=== PATIENT | female | born 1970 | race Two or more races ===

== ENCOUNTER 2022-05-30 11:52 | Emergency (ER) | payer MEDICAID ==
[~2022-05-30] VITALS: Ht 157.5 cm; Wt 81.6 kg
--- NOTE | 2022-05-30 12:11 | NUR ---
LEFT SHOULDER PAIN X 18, WORST FOR THE LAST 3 DAYS
[2022-05-30] MEDS ORDERED: HYDROCODONE/APAP 10/325MG TABLET ONE (12:34)
[2022-05-30] MEDS ORDERED: IBUPROFEN 600 MG TABLET ONE (12:34)
--- NOTE | 2022-05-30 12:40 | NUR ---
CHIEF [employer]ATEGY [employer]ICER AT BEDSIDE
[2022-05-30] MEDS: IBUPROFEN 600 MG TABLET PO ONE (12:46)
[2022-05-30] MEDS: HYDROCODONE/APAP 10/325MG TABLET PO ONE (12:46)
[2022-05-30] MEDS ORDERED: TRAM50TA2 PO (13:50)
[2022-05-30] MEDS ORDERED: IBUP-1955 PO (13:50)
[2022-05-30 14:14] VITALS: BP 128/82
== END 2022-05-30 14:14 | disposition home or self-care (01) ==
LOC: ER 11:58
DX: M75.32 Calcific tendinitis of left shoulder (principal); I10 Essential (primary) hypertension; E11.9 Type 2 diabetes mellitus without complications; Z79.4 Long term (current) use of insulin; Z79.84 Long term (current) use of oral hypoglycemic drugs
CPT/HCPCS: 73030-TC; 82962-TC